=== PATIENT | female | born 1960 | race Caucasian/White ===

== ENCOUNTER 2022-11-12 13:08 | Emergency (ER) | payer OTHER ==
[~2022-11-12] VITALS: Ht 160 cm; Wt 72.1 kg
[2022-11-12] MEDS ORDERED: MUCINEX FAST-M180 M2 PO (16:20)
[2022-11-12] MEDS ORDERED: ZITHROMAX500 MG PO (16:20)
== END 2022-11-12 16:42 | disposition home or self-care (01) ==
LOC: ER 13:08
PROVIDERS: Nurse Practitioner Family
DX: J98.8 Other specified respiratory disorders (principal); B97.89 Other viral agents as the cause of diseases classified elsewhere; Z20.822 Contact with and (suspected) exposure to COVID-19
CPT/HCPCS: 36415; 71046; 96372; 99283; J1100